=== PATIENT | female | born 1990 | race Caucasian/White ===

== ENCOUNTER → 2016-06-27 | Outpatient (CLI) | payer SELFPAY | LOC: RAD 17:55 | PROVIDERS: ATTEND Nurse Practitioner Women's Health | DX: Z34.01 Encounter for supervision of normal first pregnancy, first trimester (principal) | CPT/HCPCS: 76801 ==

== ENCOUNTER 2016-07-11 12:26 | Emergency (ER) | payer SELFPAY ==
[2016-07-11 12:33] VITALS: BP 116/58
--- NOTE | 2016-07-11 12:36 | ER Document Report ---
ED Medical Screen (RME) - General Stated Complaint: FLU LIKE SYMPTOMS Notes: 26 yo female c/o flu like symptoms x 3 days. pt is . 15wk. G1 no vomiting TRAVEL OUTSIDE OF THE [place] IN LAST 30 DAYS: No - Related Data Allergies/Adverse Reactions: cefaclor [From Ceclor] Allergy (Verified 07/11/16 12:34) Past Medical History Psychiatric Medical History: Reports: Hx Attention Deficit Hyperactivity Disorder, Hx Depression Physical Exam - Vital signs Vitals: Temp Pulse Resp BP Pulse Ox 98.3 F 95 16 116/58 L 98 07/11/16 12:31 07/11/16 12:31 07/11/16 12:31 07/11/16 12:31 07/11/16 12:31 Course - Vital Signs Vital signs: Temp Pulse Resp BP Pulse Ox 98.3 F 95 16 116/58 L 98 07/11/16 12:31 07/11/16 12:31 07/11/16 12:31 07/11/16 12:31 07/11/16 12:31
--- NOTE | 2016-07-11 14:56 | ER Document Report ---
ED Flu Like - General Chief Complaint: Flu Symptoms Stated Complaint: FLU LIKE SYMPTOMS Mode of Arrival: Ambulatory Information source: Patient Notes: 26-year-old female presents to the emergency department complaining of cough, congestion, body aches, and intermittent fever over the last 3 days. Patient reports has had similar episodes in the past however was concerned because she is approximately 15 weeks , G1. Denies pelvic pain, vaginal bleeding or discharge, chest pain or shortness of breath, nausea or vomiting. TRAVEL OUTSIDE OF THE [place] IN LAST 30 DAYS: No - HPI Timing/Duration: Persistent Quality of pain: Achy Severity: Mild Pain Level: 2 CO exposure: No Associated symptoms: Body/muscle aches, Chills, Productive cough, Fever, Rhinnorhea Similar symptoms previously: Yes Recently seen / treated by doctor: No - Related Data Allergies/Adverse Reactions: cefaclor [From Ceclor] Allergy (Verified 07/11/16 12:34) Past Medical History - General Information source: Patient - Social History Smoking Status: Current Some Day Smoker Chew tobacco use (# tins/day): No Frequency of alcohol use: None Drug Abuse: None Lives with: Family Family History: Reviewed & Not Pertinent Patient has suicidal ideation: No Patient has homicidal ideation: No Renal/ Medical History: Denies: Hx Peritoneal Dialysis Psychiatric Medical History: Reports: Hx Attention Deficit Hyperactivity Disorder, Hx Depression Surgical Hx: Negative - Immunizations Hx Diphtheria, Pertussis, Tetanus Vaccination: Yes Review of Systems - Review of Systems Constitutional: See HPI EENT: See HPI Cardiovascular: No symptoms reported Respiratory: See HPI Gastrointestinal: No symptoms reported Genitourinary: No symptoms reported Female Genitourinary: See HPI Musculoskeletal: No symptoms reported Skin: No symptoms reported Hematologic/Lymphatic: No symptoms reported Neurological/Psychological: No symptoms reported -: Yes All other systems reviewed and negative Physical Exam - Vital signs Vitals: Temp Pulse Resp BP Pulse Ox 98.3 F 95 16 116/58 L 98 07/11/16 12:31 07/11/16 12:31 07/11/16 12:31 07/11/16 12:31 07/11/16 12:31 Interpretation: Normal - General General appearance: Appears well, Alert In distress: None - HEENT Head: Normocephalic, Atraumatic Eyes: Normal Conjunctiva: Normal Eyelashes: Normal Pupils: PERRL Ears: Normal External canal: Normal Tympanic membrane: Normal Sinus: No: Tenderness Nasal: Normal. No: Purulent discharge Mouth/Lips: Normal Mucous membranes: Normal, Moist Pharynx: Normal. No: Blood in hypopharynx, Erythema, Exudate, Peritonsillar abscess, Post nasal drainage, Retropharyngeal abscess, Tonsillar hypertrophy, Uvular edema, Potential airway comprom., Other Neck: Normal. No: Anterior cervical chain, Posterior cervical chain, Lymphadenopathy, Meningismus, Subcutaneous emphysema - Respiratory Respiratory status: No respiratory distress Chest status: Nontender Breath sounds: Normal - CTAB, Nonproductive cough Chest palpation: Normal - Cardiovascular Rhythm: Regular Heart sounds: Normal auscultation Murmur: No Pulses: Normal: Radial Normal capillary refill: Yes - Abdominal Inspection: Gravid female Distension: No distension Bowel sounds: Normal Tenderness: Nontender Organomegaly: No organomegaly - Back Back: Normal, Nontender - Extremities General upper extremity: Normal inspection, Nontender, Normal color, Normal ROM , Normal temperature General lower extremity: Normal inspection, Nontender, Normal color, Normal ROM , Normal temperature, Normal weight bearing. No: Darshan's sign - Neurological Neuro grossly intact: Yes Cognition: Normal Orientation: AAOx4 Yesenia Coma Scale Eye Opening: Spontaneous Yesenia Coma Scale Verbal: Oriented Yesenia Coma Scale Motor: Obeys Commands [place] Coma Scale Total: 15 Speech: Normal Motor strength normal: LUE, RUE, LLE, RLE Sensory: Normal - Psychological Associated symptoms: Normal affect, Normal mood - Skin Skin Temperature: Warm Skin Moisture: Dry Skin Color: Normal Course - Re-evaluation Re-evalutation: 07/11/16 14:56 Patient hemodynamically stable, in no distress, afebrile in the ED, nontoxic, and appears well-hydrated. Influenza A and B negative. No suggestion of emergent infectious etiology at this time. Patient was offered but declined x- ray at this time. Patient herself discharge and agrees with home care, follow- up, and ED return precautions. - Vital Signs Vital signs: Temp Pulse Resp BP Pulse Ox 98.3 F 95 16 116/58 L 98 07/11/16 12:31 07/11/16 12:31 07/11/16 12:31 07/11/16 12:31 07/11/16 12:31 Discharge - Discharge Clinical Impression: URI (upper respiratory infection) Qualifiers: URI type: unspecified viral URI Qualified Code(s): J06.9 - Acute upper respiratory infection, unspecified Condition: Stable Disposition: HOME, SELF-CARE Additional Instructions: UPPER RESPIRATORY ILLNESS: You have a viral infection of the respiratory passages -- a "cold." This common infection causes nasal congestion, drainage, and often sore throat and cough. It is highly contagious. The disease usually lasts about 10 to 14 days. There is no "cure" for the viral infection -- it must run its course. If there is a complication, such as bacterial infection in the nose, sinuses, middle ear, or bronchial tubes, antibiotics may be required. The antibiotics won't affect the virus. Drink plenty of fluids. A humidifier may help. Use acetaminophen for fever or aches. See the doctor if fever persists over two days, if there is any significant worsening of your symptoms, or if you simply fail to improve as expected. USE OF ACETAMINOPHEN (Tylenol): Acetaminophen may be taken for pain relief or fever control. It's much safer than aspirin, offering a wider range of "safe" dosages. It is safe during . Some brand names are Tylenol, Panadol, Datril, Anacin 3, Tempra, and Liquiprin. Acetaminophen can be repeated every four hours. The following are maximum recommended dosages: >89 pounds or adults 650 mg to 900 mg Acetaminophen can be repeated every four hours. Maximum dose not to exceed 4000 mg a day. SMOKING: If you smoke, you should stop smoking. The tar and chemicals in cigarette smoke are harmful. Smoking has been shown to cause: emphysema chronic bronchitis lung cancer mouth and throat cancer stomach and pancreas cancer premature aging defects In addition, smoking increases ear and lung infections in children of smokers. Home self care: -Rest, hydration (10-12 glasses/day) -Steamy shower -Apply warm facial packs -Nasal saline irrigation lavage (Neti-Pot) -Sleep with head elevated -Avoid cigarette smoke -Use of humidifier/vaporizer -Balanced nutrition FOLLOW-UP CARE: Drink plenty of fluids. Follow-up with your primary care provider this week. Return to the emergency department for any worsening symptoms or concerns. Referrals: JESSIKA HOUSTON MD [Primary Care Provider] - Follow up in 3-5 days
== END 2016-07-11 15:10 | disposition home or self-care (01) ==
LOC: ER 12:26
DX: O26.892 Other specified pregnancy related conditions, second trimester (principal); J06.9 Acute upper respiratory infection, unspecified; R68.89 Other general symptoms and signs; M79.1 Myalgia; O99.332 Smoking (tobacco) complicating pregnancy, second trimester; Z3A.15 15 weeks gestation of pregnancy
CPT/HCPCS: 87804; 99283

== ENCOUNTER 2016-12-14 05:43 | Outpatient (CLI) | payer MEDICAID ==
[2016-12-14 06:33] LABS: APPEARANCE,URINE SLIGHTLY-CLOUDY; BILIRUBIN,URINE NEGATIVE (NEGATIVE); GLUCOSE, URINE NEGATIVE (NEGATIVE); KETONES,URINE NEGATIVE (NEGATIVE); LEUKOCYTE ESTERASE,URINE NEGATIVE (NEGATIVE); NITRITE,URINE NEGATIVE (NEGATIVE); PROTEIN,URINE NEGATIVE (NEGATIVE); URINE SPECIFIC GRAVITY 1.011; UROBILINOGEN,URINE NEGATIVE mg/dL (<2.0)
[2016-12-14 06:42] LABS: URINE BARBITURATES SCREEN NEGATIVE; URINE METHADONE SCREEN NEGATIVE; URINE OPIATES LOW NEGATIVE; URINE PHENCYCLIDINE SCREEN NEGATIVE
== END 2016-12-14 08:55 | disposition home or self-care (01) ==
LOC: LC 05:43
PROVIDERS: ATTEND Student in an Organized Health Care Education/Training Program
DX: O47.9 False labor, unspecified (principal)
CPT/HCPCS: 80307; 81005

== ENCOUNTER 2016-12-16 13:25 | Inpatient (IN) | payer MEDICAID ==
[2016-12-16] MEDS ORDERED: PENICILLIN G POTASSIUM 5,000,000 UNIT in DEXTROSE 5%-WATER 100 ML IV ONE (14:00)
[2016-12-16] MEDS ORDERED: PENICILLIN G-K 5 MILLION UNIT VIAL ONE ×3 (14:01→22:02)
[2016-12-16] MEDS ORDERED: MISOPROSTOL 0.1 MG TABLET ONE ×3 (14:18→22:03)
[2016-12-16 14:26] LABS: ABSOLUTE LYMPHOCYTES (AUTO) 1.7 10^3/uL (0.5-4.7); ABSOLUTE MONOCYTES (AUTO) 0.5 10^3/uL (0.1-1.4); ABSOLUTE NEUT (AUTO) 7.4 10^3/uL (1.7-8.2); BASOPHILS % (AUTO) 0.4 % (0-2); EOSINOPHILS % (AUTO) 0.5 % (0-6); HEMATOCRIT 35.9 % (36.0-47.0); HEMOGLOBIN 12.1 g/dL (12.0-15.5); HGB HCT DIFFERENCE 0.4; LYMPHOCYTES % (AUTO) 17.2 % (13-45); MEAN CORPUSCULAR HEMOGLOBIN 30.3 pg (27.0-33.4); MEAN CORPUSCULAR HGB CONC 33.7 g/dL (32.0-36.0); MEAN CORPUSCULAR VOLUME 90 fl (80-97); MONOCYTES % (AUTO) 5.3 % (3-13); RED CELL DISTRIBUTION WIDTH 13.4 % (11.5-14.0); SEGMENTED NEUTROPHILS % (AUTO) 76.6 % (42-78); WHITE BLOOD COUNT 9.7 10^3/uL (4.0-10.5)
[2016-12-16 14:44] LABS: APPEARANCE,URINE SLIGHTLY-CLOUDY; BILIRUBIN,URINE NEGATIVE (NEGATIVE); GLUCOSE, URINE NEGATIVE (NEGATIVE); KETONES,URINE NEGATIVE (NEGATIVE); LEUKOCYTE ESTERASE,URINE NEGATIVE (NEGATIVE); NITRITE,URINE NEGATIVE (NEGATIVE); PROTEIN,URINE NEGATIVE (NEGATIVE); URINE SPECIFIC GRAVITY 1.006; UROBILINOGEN,URINE NEGATIVE mg/dL (<2.0)
[2016-12-16] MEDS ORDERED: MISOPROSTOL 0.1 MG TABLET PO ONE (14:45)
[2016-12-16 15:08] LABS: URINE BARBITURATES SCREEN NEGATIVE; URINE METHADONE SCREEN NEGATIVE; URINE OPIATES LOW NEGATIVE; URINE PHENCYCLIDINE SCREEN NEGATIVE
[2016-12-16] MEDS: RINGERS SOLUTION,LACTATED 1,000 ML IV PRN (15:20)
[2016-12-16] MEDS: PENICILLIN G POTASSIUM 2,500,000 UNIT in DEXTROSE 5%-WATER 50 ML IV SCH ×2 (18:35→22:00)
[2016-12-16] MEDS: MISOPROSTOL 0.1 MG TABLET PO SCH ×2 (18:35→22:40)
[2016-12-16] MEDS ORDERED: NALBUPHINE HCL INJ 10 MG/1 ML AMPULE ONE (23:09)
[2016-12-16] MEDS ORDERED: PROMETHAZINE HCL INJ 25 MG/1 ML VIAL ONE (23:09)
[2016-12-16] MEDS ORDERED: PROMETHAZINE HCL INJ 25 MG/1 ML VIAL IV ONE (23:52)
[2016-12-16] MEDS ORDERED: NALBUPHINE HCL INJ 10 MG/1 ML AMPULE INJ ONE (23:52)
[2016-12-17] MEDS: MISOPROSTOL 0.1 MG TABLET PO SCH (02:00)
[2016-12-17] MEDS ORDERED: PENICILLIN G-K 5 MILLION UNIT VIAL ONE ×3 (02:15→10:29)
[2016-12-17] MEDS: PENICILLIN G POTASSIUM 2,500,000 UNIT in DEXTROSE 5%-WATER 50 ML IV SCH ×2 (02:39→06:43)
[2016-12-17] MEDS ORDERED: NALBUPHINE HCL INJ 10 MG/1 ML AMPULE INJ ONE (03:10)
[2016-12-17] MEDS ORDERED: PROMETHAZINE HCL INJ 25 MG/1 ML VIAL IV ONE (03:10)
[2016-12-17] MEDS ORDERED: PROMETHAZINE HCL INJ 25 MG/1 ML VIAL ONE (03:26)
[2016-12-17] MEDS ORDERED: NALBUPHINE HCL INJ 10 MG/1 ML AMPULE ONE (03:26)
[2016-12-17] MEDS ORDERED: OXYTOCIN/NORMAL SALINE 0 UNIT/0 ML RTUINJ ONE (03:26)
[2016-12-17] MEDS ORDERED: OXYTOCIN/NORMAL SALINE 1,000 ML IV PRN ×3 (03:48→16:19)
--- NOTE | 2016-12-17 04:01 | L&D Progress Notes ---
PROGRESS NOTES Datetime Report Generated by CPN: 12/17/2016 04:00 PROGRESS NOTE Impression: Reassuring Heart Rate Procedures- Other: Regan bulb placed for induction Plan: Induction Vital Signs : Reviewed; Within Normal Limits VAGINAL EXAM Dilatation: 2 Effacement: 80 Station: -2 MEMBRANES Pooling: Positive Membranes: Ruptured Amniotic Fluid Color: Clear FETUS A FHR - Baseline: 140 Monitoring: External US Variability: Moderate 6-25bpm Accelerations: 15X15 Decelerations: None FHR Category: Category I : 37.5 Estimated Weight (gm): 3500 Presentation: Vertex SIGNATURE SIGNATURE: [id number] Signature: with User ID: [email or web address]
[2016-12-17] MEDS ORDERED: FENTANYL/BUPIVACAINE/NS/PF 200 MCG/100 ML RTUINJ EPI ONE (04:31)
[2016-12-17] MEDS ORDERED: MISOPROSTOL 0.2 MG TABLET ONE (04:31)
[2016-12-17] MEDS ORDERED: EPHEDRINE SULFATE INJ 50 MG/1 ML AMPULE ONE ×2 (04:31→14:40)
[2016-12-17] MEDS ORDERED: OXYTOCIN/NORMAL SALINE 20 UNIT/1,000 ML RTUINJ ONE ×2 (04:31→14:39)
[2016-12-17] MEDS ORDERED: LIDOCAINE 1% INJ-PF (10 MG/ML) 30 ML SDV ONE (04:31)
[2016-12-17] MEDS ORDERED: BUPIVACAINE HCL 0.25 % INJ/PF (2.5 MG/1 ML) 30 ML VIAL ONE (04:32)
[2016-12-17] MEDS: RINGERS SOLUTION,LACTATED 1,000 ML IV PRN ×3 (06:43→11:50)
[2016-12-17] MEDS ORDERED: ONDANSETRON HCL INJ/PF 4 MG/2 ML SDV ONE (07:26)
[2016-12-17] MEDS ORDERED: LIDOCAINE 2% INJ-PF (20 MG/ML) 10 ML AMPUL ONE (07:26)
[2016-12-17] MEDS ORDERED: DEXAMETHASONE SOD PHOSPHATE INJ 4 MG/1 ML VIAL ONE (07:26)
[2016-12-17] MEDS ORDERED: METOCLOPRAMIDE HCL INJ/PF 10 MG/2 ML SDV ONE (07:26)
[2016-12-17] MEDS ORDERED: KETOROLAC TROMETHAMINE 60 MG/2 ML SDV ONE (07:26)
[2016-12-17] MEDS ORDERED: LIDOCAINE 1% INJ-PF (10 MG/ML) 30 ML SDV INJ PRN (07:51)
[2016-12-17] MEDS ORDERED: MISOPROSTOL 0.2 MG TABLET PR PRN (07:51)
[2016-12-17] MEDS ORDERED: LIDOCAINE 2%/EPINEPHRINE INJ 20 ML VIAL ONE (10:05)
[2016-12-17] MEDS ORDERED: SODIUM BICARBONATE 8.4% INJ 50 MEQ/50 ML DISP.SYRIN ONE (10:06)
[2016-12-17] MEDS: PENICILLIN G-K 5 MILLION UNIT VIAL IV SCH ×2 (10:47→16:02)
[2016-12-17] MEDS ORDERED: ACETAMINOPHEN 100 ML IV PRN (11:07)
[2016-12-17] MEDS ORDERED: ACETAMINOPHEN 100 ML IV ONE ×3 (11:22→16:19)
[2016-12-17 14:13] LABS: ABSOLUTE BASOPHILS # (AUTO) 0.1 10^3/uL (0.0-0.2); ABSOLUTE LYMPHOCYTES (AUTO) 1.3 10^3/uL (0.5-4.7); ABSOLUTE MONOCYTES (AUTO) 1.1 10^3/uL (0.1-1.4); BASOPHILS % (AUTO) 0.3 % (0-2); HEMATOCRIT 34.7 % (36.0-47.0); HEMOGLOBIN 11.5 g/dL (12.0-15.5); HGB HCT DIFFERENCE -0.2; LYMPHOCYTES % (AUTO) 7.2 % (13-45); MEAN CORPUSCULAR HGB CONC 33.2 g/dL (32.0-36.0); MEAN CORPUSCULAR VOLUME 90 fl (80-97); RED BLOOD COUNT 3.83 10^6/uL (3.72-5.28); RED CELL DISTRIBUTION WIDTH 13.6 % (11.5-14.0); SEGMENTED NEUTROPHILS % (AUTO) 86.5 % (42-78); WHITE BLOOD COUNT 18.6 10^3/uL (4.0-10.5)
[2016-12-17] MEDS ORDERED: CEFAZOLIN 2 GM/D5W RTU 2 GM/50 ML RTUPB IV ONE (14:19)
[2016-12-17] MEDS ORDERED: CITRIC ACID/SODIUM CITRATE ORAL SOLN 15 ML UDCUP ONE (14:20)
[2016-12-17] MEDS ORDERED: KETAMINE HCL INJ 500 MG/10 ML VIAL ONE (14:39)
[2016-12-17] MEDS ORDERED: OXYTOCIN 10 UNIT/ML VIAL ONE (14:39)
[2016-12-17] MEDS ORDERED: FENTANYL CITRATE INJ/PF 100 MCG/2 ML AMPUL ONE ×2 (14:40→16:38)
[2016-12-17] MEDS ORDERED: MIDAZOLAM 2 MG/2 ML INJ ONE (14:40)
[2016-12-17] MEDS ORDERED: CEFAZOLIN 2 GM/D5W RTU 2 GM/50 ML RTUPB IV SCH (15:00)
[2016-12-17] MEDS ORDERED: METHYLERGONOVINE MALEATE INJ/PF 0.2 MG/1 ML AMPULE ONE (15:07)
[2016-12-17] MEDS ORDERED: DIPHENHYDRAMINE HCL 50 MG/ML VIAL IV PRN (15:31)
[2016-12-17] MEDS ORDERED: PROMETHAZINE HCL INJ 25 MG/1 ML VIAL IV PRN ×3 (15:31→16:19)
[2016-12-17] MEDS ORDERED: MORPHINE SULFATE 10 MG/ML INJ IV PRN (15:31)
[2016-12-17] MEDS ORDERED: FENTANYL CITRATE INJ/PF 100 MCG/2 ML AMPUL IV PRN ×2 (15:31)
[2016-12-17] MEDS ORDERED: DIPH/PERTUSS(ACELL)/TETANUS VAC/PF 0.5 ML SYR (>=10YO) IM PRN (16:19)
[2016-12-17] MEDS ORDERED: OXYCODONE-ACETAMINOPHEN 5-325 MG TABLET PO PRN (16:19)
[2016-12-17] MEDS ORDERED: SIMETHICONE 80 MG TAB.CHEW PO PRN (16:19)
[2016-12-17] MEDS ORDERED: HYDROMORPHONE HCL INJ/PF 2 MG/ML AMPULE IV PRN (16:19)
[2016-12-17] MEDS ORDERED: ACETAMINOPHEN 325 MG TABLET PO PRN (16:19)
[2016-12-17] MEDS ORDERED: MEASLES,MUMPS&RUBELLA VACC/PF 0.5 ML VIAL SUBCUT PRN (16:19)
[2016-12-17] MEDS ORDERED: MEPERIDINE HCL/PF INJ 25 MG/1 ML DISP.SYRIN ONE (16:38)
[2016-12-17] MEDS: FENTANYL CITRATE INJ/PF 100 MCG/2 ML AMPUL IV PRN ×2 (16:40→17:14)
[2016-12-17] MEDS: MEPERIDINE HCL/PF INJ 25 MG/1 ML DISP.SYRIN IV PRN ×2 (16:45→17:15)
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
--- NOTE | 2016-12-17 18:25 | Delivery Summary ---
Del Sum A-C Datetime Report Generated by CPN: 12/17/2016 18:25 DELIVERY PERSONNEL DELIVERY PERSONNEL: [id number] Delivery Doctor:: Fred Younger DO Anesthesiologist:: Divine More MD DYE TANK TENDER:: Luz Marina Nolasco CRNA Labor and Delivery Nurse:: Carol Carmichael RN Nursery Nurse:: Liz Sandy RN Mason Tender Restoration Labor/PATTERNMAKER METAL BENCH: ST Sarah Mason Tender Restoration Labor/PATTERNMAKER METAL BENCH: Елена Larkin COMMERCIAL SALES MANAGER MATERNAL INFORMATION Delivery Anesthesia: Epidural Medications After Delivery: Pitocin Bolus-Please Comment; Methergine 0.2mg IM Maternal Complications: Premature Rupture of Membranes; Chorioamnionitis LABOR SUMMARY EDC: 01/01/2017 00:00 No. Babies in Womb: 1 (Annotations: Data stored by [facility] on behalf of user) Attempted: No Labor Anesthesia: Epidural LABOR INFORMATION Reason for Induction: Premature Rupture of Membranes Cervical Ripening Agents: Cytotec @ Oxytocin: Augmentation Group B Beta Strep: Positive Antibiotics # of Doses: 5 Antibiotics Time of Last Dose: 1046 Name of Antibiotic Given: PCN Steroids Given: None Reason Steroids Not Administered: Not Applicable MEMBRANES Membranes Rupture Method: Spontaneous Rupture of Membranes: 12/16/2016 12:00 Length of Rupture (hr): 27.00 Amniotic Fluid Color: Clear Amniotic Fluid Amount: Moderate Amniotic Fluid Odor: Normal STAGES OF LABOR Stage 3 hr: 0 Stage 3 min: 1 VAGINAL DELIVERY Episiotomy: None Laceration Extension: N/A Laceration Type: None Laceration Repair: Not Applicable Sponge Count Correct: N/A Sharps Count Correct: N/A CSECTION DELIVERY Primary Indication: Nonreassuring Status Secondary Indication: Other Other Secondary Indication: Arrest of dilitation, chorio CSection Urgency: Non-Scheduled CSection Incidence: Primary Labor: Labor Elective: Nonelective CSection Incision: Lower Uterine Transverse BABY A INFORMATION Infant Delivery Date/Time: 12/17/2016 15:00 Method of Delivery: Vaginal Born in Route : No : N/A Forceps: N/A Vacuum Extraction: N/A Shoulder Dystocia : No PRESENTATION/POSITION BABY A Presentation: Cephalic Cephalic Presentation: Vertex Vertex Position: Left Occipital Posterior Breech Presentation: N/A PLACENTA INFORMATION BABY A Placenta Delivery Time : 12/17/2016 15:01 Placenta Method of Delivery: Manual Removal Placenta Status: Delivered SCORES BABY A Heart Rate 1 min: >100 bpm Resp Effort 1 min: Good Cry Reflex Irritability 1 min: Cough or Sneeze or Pulls Away Muscle Tone 1 min: Some Flexion of Extremities Color 1 min: Blue/Pale Resuscitation Effort 1 min: Tactile Stimulation; Oxygen SCORE 1 MIN: 7 Heart Rate 5 min: >100 bpm Resp Effort 5 min: Good Cry Reflex Irritability 5 min: Cough or Sneeze or Pulls Away Muscle Tone 5 min: Some Flexion of Extremities Color 5 min: Body [place], Extremities Blue SCORE 5 MIN: 8 INFORMATION BABY A Gestational Age at Delivery: 37.6 Gestational Status: Early Term- 37- 38.6 Weeks Infant Outcome : Liveborn Condition : Stable Infant Sex: Female IDENTIFICATION BABY A Infant Verification Date/Time: 12/17/2016 15:03 WEIGHT/LENGTH BABY A Infant Birthweight (gm): 3375 Weight (lb): 7 Infant Weight (oz): 7 Length (in): 20.50 Infant Length (cm): 52.07 CORD INFORMATION BABY A No. Cord Vessels: 3 Nuchal Cord : N/A Cord Blood Taken: Yes-For Eval (Mom's Blood Type - or O+) Suction: Mouth; Nose ASSESSMENT BABY A Infant Complications: Multiple Late Decels; Multiple Variable Decels Physical Findings at Delivery: Caput Succedaneum; Molding of the Head Infant Respirations: Appears Normal Skin to Skin: No Die Cast Operator/ALS Called : Yes Care By: Lakshmi Giordano RN SHIP WASHER Transferred To: [facility] BABY B INFORMATION : N/A
[2016-12-17] MEDS: DOCUSATE SODIUM 100 MG CAPSULE PO SCH (18:34)
[2016-12-17] MEDS: OXYCODONE-ACETAMINOPHEN 5-325 MG TABLET PO PRN ×2 (19:19→23:23)
[2016-12-17] MEDS: KETOROLAC TROMETHAMINE INJ/PF 30 MG/1 ML SDV IV SCH (21:42)
[2016-12-17] MEDS: AMPICILLIN SOD/SULBACTAM 3 GM VIAL IV SCH (23:07)
[2016-12-18] MEDS: KETOROLAC TROMETHAMINE INJ/PF 30 MG/1 ML SDV IV SCH (06:25)
[2016-12-18] MEDS: AMPICILLIN SOD/SULBACTAM 3 GM VIAL IV SCH (06:26)
[2016-12-18 06:45] LABS: HEMATOCRIT 32.2 % (36.0-47.0); HEMOGLOBIN 10.7 g/dL (12.0-15.5); HGB HCT DIFFERENCE -0.1; MEAN CORPUSCULAR HEMOGLOBIN 30.2 pg (27.0-33.4); MEAN CORPUSCULAR HGB CONC 33.1 g/dL (32.0-36.0); MEAN CORPUSCULAR VOLUME 91 fl (80-97); RED BLOOD COUNT 3.54 10^6/uL (3.72-5.28); RED CELL DISTRIBUTION WIDTH 13.6 % (11.5-14.0); WHITE BLOOD COUNT 25.9 10^3/uL (4.0-10.5)
[2016-12-18] MEDS: OXYCODONE-ACETAMINOPHEN 5-325 MG TABLET PO PRN (06:49)
[2016-12-18] MEDS ORDERED: HYDROMORPHONE HCL 2 MG TABLET ONE (09:31)
[2016-12-18] MEDS: PRENATAL VITAMIN W-O CA NO5/FE FUMARATE/FA CAPSULE PO SCH (09:31)
[2016-12-18] MEDS: DOCUSATE SODIUM 100 MG CAPSULE PO SCH ×2 (09:32→17:23)
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
[2016-12-18] MEDS: IBUPROFEN 800 MG TABLET PO SCH ×3 (11:36→23:20)
[2016-12-18] MEDS: HYDROMORPHONE HCL 2 MG TABLET PO PRN ×2 (13:45→19:51)
[2016-12-18] MEDS ORDERED: AMPICILLIN SODIUM/SULBACTAM NA 3 GM in NORMAL SALINE 100 ML IV ONE (14:00)
[2016-12-19] MEDS: HYDROMORPHONE HCL 2 MG TABLET PO PRN ×3 (00:27→09:22)
[2016-12-19] MEDS: IBUPROFEN 800 MG TABLET PO SCH ×4 (05:03→23:28)
[2016-12-19 06:46] LABS: HEMATOCRIT 26.5 % (36.0-47.0); HGB HCT DIFFERENCE -0.7; MEAN CORPUSCULAR HEMOGLOBIN 29.8 pg (27.0-33.4); MEAN CORPUSCULAR HGB CONC 32.6 g/dL (32.0-36.0); MEAN CORPUSCULAR VOLUME 91 fl (80-97); RED CELL DISTRIBUTION WIDTH 13.6 % (11.5-14.0); WHITE BLOOD COUNT 16.5 10^3/uL (4.0-10.5)
[2016-12-19 06:51] LABS: HEMOGLOBIN 8.6 g/dL (12.0-15.5)
[2016-12-19] MEDS: DOCUSATE SODIUM 100 MG CAPSULE PO SCH ×2 (09:22→18:19)
[2016-12-19] MEDS: PRENATAL VITAMIN W-O CA NO5/FE FUMARATE/FA CAPSULE PO SCH (09:22)
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
[2016-12-19] MEDS ORDERED: OXYCODONE-ACETAMINOPHEN 5-325 MG TABLET PO PRN (12:24)
[2016-12-19] MEDS: OXYCODONE-ACETAMINOPHEN 5-325 MG TABLET PO PRN ×3 (13:46→23:30)
[2016-12-20] MEDS: OXYCODONE-ACETAMINOPHEN 5-325 MG TABLET PO PRN (03:36)
[2016-12-20] MEDS: IBUPROFEN 800 MG TABLET PO SCH ×2 (05:32→12:57)
[2016-12-20] MEDS: DOCUSATE SODIUM 100 MG CAPSULE PO SCH (10:13)
[2016-12-20] MEDS: PRENATAL VITAMIN W-O CA NO5/FE FUMARATE/FA CAPSULE PO SCH (10:13)
[2016-12-20 11:25] VITALS: BP 117/63
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
--- NOTE | 2017-01-29 08:56 | OPERATIVE REPORT E ---
Operative Report NAME: SMITA URRUTIA : 1990 AGE: 26Y DATE OF SURGERY: 12/17/2016 ROOM: 222 PREOPERATIVE DIAGNOSES: 1. A 37-week intrauterine . 2. Nonreassuring heart tones. 3. Arrest of dilatation. POSTOPERATIVE DIAGNOSES: 1. A 37-week intrauterine . 2. Nonreassuring heart tones. 3. Arrest of dilatation. SURGEON: Fred Younger D.O. AXMINSTER WEAVER: None. PROCEDURE: Primary low transverse section. ANESTHESIA: Epidural. COMPLICATIONS: None. PATHOLOGY: Placenta. ESTIMATED BLOOD LOSS: 600 mL. FINDINGS: 1. Viable male at 1500 hours on 12/17/2016. Apgars 8 at one, 9 at five. 2. Normal-appearing bilateral fallopian tubes and ovaries. DESCRIPTION OF PROCEDURE: The patient was taken to the operating room where she was placed in the dorsal supine position with a leftward tilt upon the operating room table. Her epidural anesthesia was found to be working adequately. She was then prepped and draped in normal sterile fashion. A scalpel was then used to make a Pfannenstiel skin incision. The skin incision was carried down to the subcutaneous tissue to the layer of the fascia. The fascia was then incised in the midline and the fascial incision was then extended bilaterally using the Bovie cautery. Superior fascial edge was grasped with Leydi clamps, elevated, and the rectus muscles were dissected off sharply and bluntly. Attention was then turned to the inferior fascial edge, which was grasped with Leydi clamps, elevated, and the rectus muscle was dissected off sharply and bluntly. Rectus muscles were then in the midline, peritoneum identified and entered bluntly with the surgeon's hands. Bladder blade was inserted. A scalpel was then used to make a low transverse hysterotomy incision. The infant was found to be in cephalic position and delivered through the incision without difficulty and atraumatically. The nose and mouth were suctioned. Cord was clamped and cut, and the was handed off to the awaiting nurses. Cord blood was then obtained. The placenta was then manually removed from the uterus. Uterus was then exteriorized and cleared of all clots and debris. The hysterotomy incision was then reapproximated using 2 layers of 1-0 Vicryl in a running, locking fashion. Following closure of the second layer, excellent hemostasis was noted. The uterus was then returned to the abdomen. Again, the hysterotomy incision was reinspected and found to have excellent hemostasis. The rectus muscles were then reapproximated using 1-0 Vicryl interrupted sutures. The fascia was then closed using 1-0 Vicryl in a running, non-locking fashion. The subcutaneous space was made hemostatic using Bovie cautery and the skin was then closed with absorbable kavitha, covered with an OpSite and then with a pressure dressing. At this point in time, the procedure was terminated. All sponge, lap, and needle counts were correct x2. The patient tolerated the procedure well. The patient was taken to recovery room in stable condition. DICTATING PHYSICIAN: Fred Younger DO [id number] PHY#: [id number] ID: [id number] JOB#: [id number] ACCT: [id number] cc:Fred Younger D.O. >
== END 2016-12-20 13:50 | disposition home or self-care (01) | DRG 765 ==
LOC: LC 13:25 → LR 13:49 → 2S 12-17 17:35
PROVIDERS: ADMIT Obstetrics & Gynecology; ATTEND Obstetrics & Gynecology
PROC: 10D00Z1 Extraction of Products of Conception, Low, Open Approach (ICD-10-PCS; principal; 2016-12-17)
DX: O41.1230 Chorioamnionitis, third trimester, not applicable or unspecified (principal); O98.32 Other infections with a predominantly sexual mode of transmission complicating childbirth; A63.0 Anogenital (venereal) warts; O42.12 Full-term premature rupture of membranes, onset of labor more than 24 hours following rupture; O99.824 Streptococcus B carrier state complicating childbirth; O62.1 Secondary uterine inertia; O76 Abnormality in fetal heart rate and rhythm complicating labor and delivery; O99.344 Other mental disorders complicating childbirth; F60.3 Borderline personality disorder; Z3A.37 37 weeks gestation of pregnancy; Z37.0 Single live birth
CPT/HCPCS: 1961; 36415; 80307; 81005; 85025; 85027; 86592; 86850; 86900; 86901; 88307; 94760; 94799; J0131; J0295; J0690; J1100; J1170; J1885; J2175; J2210; J2250; J2300; J2405; J2540; J2550; J2590; J2765; J3010; J3490

== ENCOUNTER 2017-09-14 22:51 | Emergency (ER) | payer MEDICAID ==
[2017-09-15] MEDS ORDERED: PREDNISONE 20 MG TABLET PO ONE (00:30)
[2017-09-15] MEDS ORDERED: ALBUTEROL SULFATE HFA (90 MCG/PUFF) 8 GM MDI (1 MDI/ER DISP) IH ONE (00:30)
[2017-09-15 00:38] VITALS: BP 115/76
--- NOTE | 2017-09-15 00:38 | ER Document Report ---
ED General - General Chief Complaint: Cold Symptoms Stated Complaint: FEVER Time Seen by Provider: 09/15/17 00:16 TRAVEL OUTSIDE OF THE [place] IN LAST 30 DAYS: No - HPI Patient complains to provider of: Fevers cough Notes: Is coming in for evaluation of cold-like symptoms fevers cough ongoing for the last 48 hours. Patient states did not receive a flu vaccination this year denies any recent travel or sick contacts. Patient states the main reason for coming to the ER days for a work note states that she has missed the last few days however it does not think she can go tomorrow and will like an excuse. Patient states she has been taking Mucinex and Tylenol cough cold at home. Patient states she does currently smoke. Patient states T-max today was 102. Denies any nausea vomiting diarrhea. Patient otherwise resting comfortably nontoxic looking upon my evaluation. - Related Data Allergies/Adverse Reactions: cefaclor [From [employer]] Allergy (Severe, Verified 12/16/16 13:40) Hives Past Medical History - Social History Smoking Status: Unknown if Ever Smoked Frequency of alcohol use: Rare Drug Abuse: None Family History: Reviewed & Not Pertinent Patient has suicidal ideation: No Patient has homicidal ideation: No Renal/ Medical History: Denies: Hx Peritoneal Dialysis Psychiatric Medical History: Reports: Hx Attention Deficit Hyperactivity Disorder, Hx Depression - Immunizations Hx Diphtheria, Pertussis, Tetanus Vaccination: Yes Review of Systems - Review of Systems Constitutional: Fever EENT: No symptoms reported Cardiovascular: No symptoms reported Respiratory: Cough, Short of breath Gastrointestinal: No symptoms reported Genitourinary: No symptoms reported Female Genitourinary: No symptoms reported Musculoskeletal: No symptoms reported Skin: No symptoms reported Hematologic/Lymphatic: No symptoms reported Neurological/Psychological: No symptoms reported -: Yes All other systems reviewed and negative Physical Exam - Vital signs Vitals: Temp Pulse Resp BP Pulse Ox 98 F 94 18 120/83 98 09/14/17 22:56 09/14/17 22:56 09/14/17 22:56 09/14/17 22:56 09/14/17 22:56 Interpretation: Normal - General General appearance: Appears well, Alert - HEENT Head: Normocephalic, Atraumatic Eyes: Normal Pupils: PERRL - Respiratory Respiratory status: No respiratory distress Chest status: Nontender Breath sounds: Wheezing Chest palpation: Normal - Cardiovascular Rhythm: Regular Heart sounds: Normal auscultation Murmur: No - Abdominal Inspection: Normal Distension: No distension Bowel sounds: Normal Tenderness: Nontender Organomegaly: No organomegaly - Back Back: Normal, Nontender - Extremities General upper extremity: Normal inspection, Nontender, Normal color, Normal ROM , Normal temperature General lower extremity: Normal inspection, Nontender, Normal color, Normal ROM , Normal temperature, Normal weight bearing. No: Darshan's sign - Neurological Neuro grossly intact: Yes Cognition: Normal Orientation: AAOx4 [place] Coma Scale Eye Opening: Spontaneous [place] Coma Scale Verbal: Oriented [place] Coma Scale Motor: Obeys Commands [place] Coma Scale Total: 15 Speech: Normal Motor strength normal: LUE, RUE, LLE, RLE Sensory: Normal - Psychological Associated symptoms: Normal affect, Normal mood - Skin Skin Temperature: Warm Skin Moisture: Dry Skin Color: Normal Course - Re-evaluation Re-evalutation: 09/15/17 01:29 Patient's evaluation consistent with a viral illness more likely underlying influenza. Patient otherwise looks well-hydrated nontoxic. Patient's lungs are wheezing. Patient was encouraged to stop smoking. Patient will be treated with bronchodilator therapy was also started patient on steroids. Patient agrees this plan was provided. Patient will be discharged home. - Vital Signs Vital signs: Temp Pulse Resp BP Pulse Ox 98.6 F 77 12 115/76 97 09/15/17 00:36 09/15/17 00:36 09/15/17 00:36 09/15/17 00:36 09/15/17 00:36 Discharge - Discharge Clinical Impression: Influenza, Wheezy bronchitis Condition: Good Instructions: Bronchitis With Bronchospasm (Wheezing) ([facility]), Influenza ([facility]) [id number] Additional Instructions: Your evaluation is consistent with viral infection more likely influenza. Highly recommend that she stop smoking while you are sick would recommend to continue to stop smoking for the rest of your life to aid in generalized health. To aid in your wheezing we will give urine inhaler here please use this 2 puffs every 4 hours as needed for shortness of breath and wheezing. Continue to take Tylenol Motrin for fever and pain control. Please make sure you are drinking plenty water to stay hydrated. Return to ER symptoms worsen follow-up with your primary care physician. Prescriptions: Prednisone [Deltasone] 40 mg PO DAILY 4 Days tablet Forms: Smoking Cessation Education, Return to Work
== END 2017-09-15 01:30 ==
LOC: ER 22:51
DX: J11.1 Influenza due to unidentified influenza virus with other respiratory manifestations (principal); J40 Bronchitis, not specified as acute or chronic; R50.9 Fever, unspecified; R05 Cough; F17.200 Nicotine dependence, unspecified, uncomplicated
CPT/HCPCS: 99283; J7512; J3490